=== PATIENT | male | born 1945 | race Caucasian/White ===

== ENCOUNTER 2018-09-15 14:14 | Emergency (ER) | payer MEDICARE, MEDICAID ==
[~2018-09-15] VITALS: Ht 170.2 cm; Wt 70.3 kg
--- NOTE | 2018-09-15 14:21 | NUR ---
ED Nurse Note: Pt [facility]ARLA from sober living house due to complaints from staff that he verbalized wanting to kill himself by running into traffic. When asked in the ER, he denies hurting himself or others. [facility] at the bedside to put pt on a 5150 hold. A + O x4. Ambulatory. Skin warm to touch. Denies pain.
--- NOTE | 2018-09-15 14:29 | NUR ---
ED Nurse Note: Belongings have been collected and placed in locker 1. Tight rings and bracelet kept on pt due to unable to take off.
[2018-09-15 14:31] VITALS: BP 145/86
[2018-09-15] MEDS ORDERED: LORazepam Inj 2mg/ml 1ml IM ONE (14:45)
[2018-09-15 15:14] LABS: HEMOGLOBIN 16.5 G/DL (14.2-18.0); MEAN CORPUSCULAR VOLUME 96 FL (80-99); PLATELET COUNT 254 K/UL (150-450); RED BLOOD COUNT 4.88 M/UL (4.70-6.10); RED CELL DISTRIBUTION WIDTH 10.9 % (11.6-14.8); WHITE BLOOD COUNT 10.8 K/UL (4.8-10.8)
--- NOTE | 2018-09-15 15:15 | NUR ---
ED Nurse Note: Urine has been collected and sent to lab.
[2018-09-15 15:30] LABS: ANION GAP 19 mmol/L (5-15); BLOOD UREA NITROGEN 17 mg/dL (7-18); CALCIUM 9.1 MG/DL (8.5-10.1); CARBON DIOXIDE 18 MMOL/L (21-32); CHLORIDE 100 MMOL/L (98-107); CREATININE 1.1 MG/DL (0.55-1.30); POTASSIUM 4.2 MMOL/L (3.5-5.1); SODIUM 137 MMOL/L (136-145)
[2018-09-15 15:41] LABS: ALANINE AMINOTRANSFERASE 36 U/L (12-78); ALBUMIN 4.1 G/DL (3.4-5.0); ALBUMIN/GLOBULIN RATIO 1.1 (1.0-2.7); ALKALINE PHOSPHATASE 108 U/L (46-116); ASPARTATE AMINO TRANSFERASE 34 U/L (15-37)
--- NOTE | 2018-09-15 16:28 | Emergency Room Report ---
History of Present Illness General Chief Complaint: Behavioral Complaint Source: Patient (Mauro Chin MD) Present Illness HPI Patient is a 73-year-old male brought in by EMS after increased agitation. Patient reportedly had been running through traffic. He reports having some prior suicidal thoughts but denies any suicidal thoughts at this time. Patient had been placed on a 5150 hold by [employer].Patient is currently residing in a sober living. Patient is currently residing in a sober living (Mauro Chin MD) Allergies: Coded Allergies: No Known Allergies (Unverified , 09/15/18) Patient History Past Medical History: see triage record Reviewed Nursing Documentation: PMH: Agreed; PSxH: Agreed (Mauro Chin MD) Nursing Documentation-PMH Past Medical History: No Stated History (Mauro Chin MD) Review of Systems All Other Systems: negative except mentioned in HPI (Mauro Chin MD) Physical Exam Vital Signs Date Time Temp Pulse Resp B/P (MAP) Pulse Ox O2 Delivery O2 Flow Rate FiO2 09/15/18 14:11 99.0 62 15 143/72 98 Room Air 09/15/18 14:31 97 Sp02 EP Interpretation: reviewed, normal General Appearance: normal inspection, well appearing, no apparent distress, alert, GCS 15 Head: atraumatic ENT: normal ENT inspection, hearing grossly normal, normal voice Neck: normal inspection, full range of motion, supple, no bony tend Respiratory: normal inspection, lungs clear, normal breath sounds, no respiratory distress, no retraction, no wheezing Cardiovascular #1: regular rate, rhythm, no edema Gastrointestinal: normal inspection, normal bowel sounds, non tender, soft, no guarding, no hernia Genitourinary: no CVA tenderness Musculoskeletal: normal inspection, back normal, normal range of motion Neurologic: normal inspection, alert, oriented x3, responsive, patternmaker hand III-XII nml as tested, speech normal Psychiatric: normal inspection, judgement/insight normal, mood/affect normal Skin: normal inspection, normal color, no rash (Mauro Chin MD) Medical Decision Making Diagnostic Impression: Primary Impression: Psychosis Additional Impression: Alcohol withdrawal ER Course Presented for altered mental status. Differential diagnoses include substance abuse, psychosis, bipolar disorder, depression, malingering.Patient was noted to have prior history of alcohol abuse but denies any recent heavy alcohol use. Blood alcohol was noted to be 90s. Patient was started on IV hydration. He was given IV Ativan.Repeat laboratory test was ordered due to patient's initial metabolic acidosis which is likely due to alcoholic ketosis.Patient was given repeat dose of Ativan and medications for sedation. Patient medically cleared for possible psych referral. CT of the head read by radiology showed moderate atrophy and a left maxillary sinusitis. Patient was noted to be on a 5150 hold. Patient was endorsed to Dr. Santiago pending further psychiatric evaluation Labs Test 09/15/18 14:45 09/15/18 15:15 White Blood Count 10.8 K/UL (4.8-10.8) Red Blood Count 4.88 M/UL (4.70-6.10) Hemoglobin 16.5 G/DL (14.2-18.0) Hematocrit 47.0 % (42.0-52.0) Mean Corpuscular Volume 96 FL (80-99) Mean Corpuscular Hemoglobin 33.9 PG (27.0-31.0) Mean Corpuscular Hemoglobin Concent 35.2 G/DL (32.0-36.0) Red Cell Distribution Width 10.9 % (11.6-14.8) Platelet Count 254 K/UL (150-450) Mean Platelet Volume 5.7 FL (6.5-10.1) Neutrophils (%) (Auto) % (45.0-75.0) Lymphocytes (%) (Auto) % (20.0-45.0) Monocytes (%) (Auto) % (1.0-10.0) Eosinophils (%) (Auto) % (0.0-3.0) Basophils (%) (Auto) % (0.0-2.0) Differential Total Cells Counted 100 Neutrophils % (Manual) 81 % (45-75) Lymphocytes % (Manual) 16 % (20-45) Monocytes % (Manual) 2 % (1-10) Eosinophils % (Manual) 1 % (0-3) Basophils % (Manual) 0 % (0-2) Band Neutrophils 0 % (0-8) Platelet Estimate Adequate Platelet Morphology Normal Red Blood Cell Morphology Normal Sodium Level 137 MMOL/L (136-145) Potassium Level 4.2 MMOL/L (3.5-5.1) Chloride Level 100 MMOL/L (98-107) Carbon Dioxide Level 18 MMOL/L (21-32) Anion Gap 19 mmol/L (5-15) Blood Urea Nitrogen 17 mg/dL (7-18) Creatinine 1.1 MG/DL (0.55-1.30) Estimat Glomerular Filtration Rate mL/min (>60) Glucose Level 99 MG/DL (74-106) Calcium Level 9.1 MG/DL (8.5-10.1) Total Bilirubin 1.0 MG/DL (0.2-1.0) Aspartate Amino Transf (AST/SGOT) 34 U/L (15-37) Alanine Aminotransferase (ALT/SGPT) 36 U/L (12-78) Alkaline Phosphatase 108 U/L (46-116) Total Protein 7.7 G/DL (6.4-8.2) Albumin 4.1 G/DL (3.4-5.0) Globulin 3.6 g/dL Albumin/Globulin Ratio 1.1 (1.0-2.7) Salicylates Level 0.5 ug/mL (2.8-20) Acetaminophen Level < 2 MCG/ML (10-30) Serum Alcohol 94 mg/dL Urine Opiates Screen Negative (NEGATIVE) Urine Barbiturates Screen Negative (NEGATIVE) Phencyclidine (PCP) Screen Negative (NEGATIVE) Urine Amphetamines Screen Negative (NEGATIVE) Urine Benzodiazepines Screen Negative (NEGATIVE) Urine Cocaine Screen Negative (NEGATIVE) Urine Marijuana (THC) Screen Negative (NEGATIVE) (Mauro Chin MD) ER Course patient became agitated multiple times during my shift managing this patient, he was given 2 separate doses of Ativan 2 mg each time, as well as one more dose of Haldol, he remained medically cleared, he was accepted by Dr. Olmos at [facility] (CHELSEA PEREZ M.D) Last Vital Signs Date Time Temp Pulse Resp B/P (MAP) Pulse Ox O2 Delivery O2 Flow Rate FiO2 09/15/18 14:31 97 11 Room Air 97 09/15/18 14:31 99.0 145/86 97 Status: improved (Mauro Chin MD) Disposition: XFER TO PSYCH HOSP/UNIT Condition: Stable Referrals: NOT CHOSEN EMILIA/,REFERRING (PCP) Mauro Chin MD Sep 15, 2018 16:28 CHELSEA PEREZ M.D Sep 16, 2018 10:24
[2018-09-15 16:38] VITALS: BP 124/70
[2018-09-15] MEDS ORDERED: LORazepam Inj 2mg/ml 1ml IV ONE ×2 (17:45→20:00)
[2018-09-15] MEDS: Thiamine HCl 100 MG in D5W 55 ML IVPB SCH ×2 (17:57→22:21)
[2018-09-15 18:40] VITALS: BP 120/75
[2018-09-15] MEDS ORDERED: DiphenhydrAMINE 50mg/ml Inj IM ONE (19:00)
[2018-09-15] MEDS ORDERED: Haloperidol 5mg/ml Inj IM ONE (19:00)
--- NOTE | 2018-09-15 19:07 | NUR ---
HAND-OFF: Report given to DYANA Flores.
[2018-09-15 19:11] VITALS: BP 120/75
--- NOTE | 2018-09-15 19:12 | NUR ---
ED Nurse Note: report received from juventino light, pt is constantly getting out of bed. security at bed side, until sitter arrives. vitals stable.
--- NOTE | 2018-09-15 19:15 | NUR ---
ED Nurse Note: BEHAVIORAL RESTRAINTS ORDERED PER ERMD, NOTIFIED ERMD THAT PT WILL HAVE A SITTER PRESENT AND RESTRAINT WILL NOT BE UTILIZED, PT VSS STABLE PT 98% ON ROOM, PT RESPONDING COOPERATIVELY TO ORDERS. DOCUMENTED ER INTERVENTION DISCONTINUATION OF RESTRAINT ORDER. CRN ALSO AWARE OF D/C RESTRAINT ORDER
[2018-09-15 19:34] LABS: ANION GAP 15 mmol/L (5-15); BLOOD UREA NITROGEN 17 mg/dL (7-18); CALCIUM 8.3 MG/DL (8.5-10.1); CARBON DIOXIDE 21 MMOL/L (21-32); CHLORIDE 102 MMOL/L (98-107); SODIUM 138 MMOL/L (136-145)
[2018-09-15 19:39] LABS: ALANINE AMINOTRANSFERASE 37 U/L (12-78); ALBUMIN 3.8 G/DL (3.4-5.0); ALKALINE PHOSPHATASE 103 U/L (46-116); ASPARTATE AMINO TRANSFERASE 39 U/L (15-37); BILIRUBIN,TOTAL 0.8 MG/DL (0.2-1.0)
--- NOTE | 2018-09-15 20:24 | NUR ---
ED Nurse Note: PT WENT TO CT
[2018-09-15 20:30] VITALS: BP 116/71
--- NOTE | 2018-09-15 20:30 | NUR ---
ED Nurse Note: PT RETURNED FROM CT
--- NOTE | 2018-09-15 21:14 | NUR ---
ED Nurse Note: PT IS CALM AND SLEEPING IN BED
[2018-09-15 22:30] VITALS: BP 118/73
--- NOTE | 2018-09-15 23:49 | NUR ---
[facility] was called. Spoke to Junior and paperwork has been faxed @ [phone]
--- NOTE | 2018-09-16 00:18 | NUR ---
[facility] was called spoke w/ Darlyn and no bed are available at this time. [facility] sup(Meera) called back and no beds are available. [facility] was called spoke w/ Herberth and no beds are available.
--- NOTE | 2018-09-16 00:22 | NUR ---
[facility] [employer] paperwork has been faxed for review.
[2018-09-16 00:30] VITALS: BP 121/74
[2018-09-16 02:34] VITALS: BP 119/74
--- NOTE | 2018-09-16 02:50 | NUR ---
ED Nurse Note: pt was asleep and accidently pulled IV site out, pt skin cleaned and reassessed skin. pt vss at the moment, breathing at 99% room air. pt is calm, and went back to sleep
[2018-09-16 04:31] VITALS: BP 124/67
[2018-09-16 06:35] VITALS: BP 137/90
--- NOTE | 2018-09-16 06:44 | NUR ---
ED Nurse Note: pt meal tray orded pt was offered apple juice and orange juice in the mean time.
--- NOTE | 2018-09-16 07:10 | NUR ---
ED Nurse Note: Received pt resting on his bed with no distress. Breakfast tray at the bed side and not yet consumed. VSS.
--- NOTE | 2018-09-16 07:15 | NUR ---
HAND-OFF: Report given to juventino mauricio.
[2018-09-16] MEDS ORDERED: Haloperidol 5mg/ml Inj IM ONE (07:30)
[2018-09-16] MEDS ORDERED: LORazepam Inj 2mg/ml 1ml IV ONE (07:30)
[2018-09-16] MEDS ORDERED: LORazepam 1mg tab ORAL ONE (08:00)
--- NOTE | 2018-09-16 09:03 | NUR ---
ED Nurse Note: Spoke to [facility] Intake: Loren, She accepted report and will accept patient. Will call back for a bed. Accepting MD: Dr Larsen
[2018-09-16 09:04] VITALS: BP_SYST 128; BP_DIAS 8; BP_DIAS 80
[2018-09-16] MEDS ORDERED: LORazepam Inj 2mg/ml 1ml IM ONE (09:30)
--- NOTE | 2018-09-16 09:49 | NUR ---
ED Nurse Note: Spoken to Shabbir Albright. Will call back for ff up. [phone].
--- NOTE | 2018-09-16 10:06 | NUR ---
ED Nurse Note: Report given to Angel RN of [facility]. They will accept pt.
[2018-09-16 10:39] VITALS: BP 135/70
--- NOTE | 2018-09-16 10:39 | NUR ---
ED Nurse Note: Report given to [facility] staff and all belongings sent with pt.
--- NOTE | 2018-09-16 11:25 | Diagnostic Imaging Report ---
Indications: Altered mental status Technique: Spiral acquisitions obtained through the brain. Angled axial and coronal 5 x 5 mm slices were reconstructed. Total dose length product 1457.02 mGycm. CTDI vol(s) 70.38 mGy. Dose reduction achieved using automated exposure control Comparison: None. Findings: There is age-related enlargement of the ventricles and extra axial CSF spaces. There is minimal periventricular deep white matter low-attenuation, consistent with chronic ischemic change. No acute intracranial hemorrhage nor edema, mass effect, nor midline shift. Normal luna-white differentiation. There is left maxillary sinus opacification. There is evidence of prior bilateral cataract surgery. The calvarium is intact. The mastoids are clear Impression: Negative for acute intracranial bleed or mass effect Age-related volume loss Left maxillary sinus disease This agrees with the preliminary interpretation provided overnight by Dr. Sanders The CT scanner at [facility] is accredited by the [employer] and the scans are performed using protocols designed to limit radiation exposure to as low as reasonably achievable to attain images of sufficient resolution adequate for diagnostic evaluation.
== END 2018-09-16 10:39 ==
LOC: EDBD 14:14 → EMR 15:08
DX: F29 Unspecified psychosis not due to a substance or known physiological condition (principal); F10.239 Alcohol dependence with withdrawal, unspecified
CPT/HCPCS: 36415; 70450; 80053; 80307; 85007; 85025; 96372; 96374; 96376; 99285; G0480; J1200; J1630; J7040; 80329